=== PATIENT | male | born 1950 | race Caucasian/White ===

== ENCOUNTER 2017-12-25 09:09 | Emergency (ER) | payer OTHER ==
[~2017-12-25] VITALS: Ht 167.6 cm; Wt 72.6 kg
[~2017-12-25 09:09] MED LIST: AMLO5; AMLO5 PO; ASPI325 PO; ASPI81CH PO; ATOR40TA PO; CEPH500 PO; CLOP75 PO; Esgic Tablet1 EACH PO; FAMO40 PO; FENT50TP TOP; HYDMOR2 PO; LORA1 PO; METO25ER PO; ONDA4ODT; OXYC1L; ROPI.25 PO; TOPI25C; ZOLP10 PO
[2017-12-25] MEDS ORDERED: Metoprolol Succ25 MG PO (09:42)
[2017-12-25 10:03] LABS: Alanine Aminotransfer (ALT/SGP 24 U/L (12-78); Albumin/Globulin Ratio 0.9 (0.8-1.8); Alk Phos 122 U/L (50-136); Anion Gap 10 mmol/L (6-16); Aspartate Aminotrans (AST/SGOT 20 U/L (12-37); Bilirubin, Total 0.2 mg/dL (0.1-1.0); Blood Urea Nitrogen 15 mg/dL (8-24); Bun/Creatinine Ratio 17.1 (12.0-20.0); CO2, Blood 26 mmol/L (21-32); Calcium, Blood 9.1 mg/dL (8.5-10.1); Chloride, Blood 103 mmol/L (98-108); Creatinine, Blood 0.88 mg/dL (0.60-1.20); Globulin, Blood 4.3 g/dL (2.2-4.0); Glomerular Filtration Rate >60 (60-); Glucose, Blood 128 mg/dL (70-99); Sodium, Blood 139 mmol/L (136-145); Total Protein, Blood 8.3 g/dL (6.4-8.2)
[2017-12-25] MEDS ORDERED: Zofran4 MG PO (10:51)
== END 2017-12-25 11:29 | disposition home or self-care (01) ==
LOC: ER 09:09
PROVIDERS: Emergency Medicine
DX: F11.23 Opioid dependence with withdrawal (principal); R11.2 Nausea with vomiting, unspecified; Z88.8 Allergy status to other drugs, medicaments and biological substances; Z79.899 Other long term (current) drug therapy; Z79.82 Long term (current) use of aspirin; Z79.891 Long term (current) use of opiate analgesic; Z87.891 Personal history of nicotine dependence
CPT/HCPCS: 36415; 80053; 93005; 93010; 96361; 96374; 96375; 96376; 99284; J1170; J2405; J7030